=== PATIENT | male | born 1935 | race Caucasian/White ===

== ENCOUNTER 2018-05-26 03:55 | Observation (INO) | payer MEDICARE ==
[2018-05-26 04:40] LABS: #Basophils 0.1 thou/uL (0.0-0.2); #Eosinphils 0.3 thou/uL (0.0-0.7); #Monocytes 1.1 thou/uL (0.11-0.59); #Neutrophils 5.9 thou/uL (1.40-6.50); %Basophils 1.1 % (0.0-1.0); %Eosinophils 3.4 % (0.0-10.0); %Lymphocytes 21.6 % (21.0-51.0); %Monocytes 11.4 % (0.0-10.0); %Neutrophils 62.5 % (42.0-75.0); Hemoglobin 16.6 g/dL (14.0-18.0); Mean Corpuscular HGB CONC 34.5 g/dL (32.0-36.0); Mean Corpuscular Hemoglobin 31.7 pg (27.0-31.0); Mean Corpuscular Volume 91.8 fL (78.0-98.0); Mean Platelet Volume 8.1 fL (7.4-10.4); Platelet Count 327 thou/uL (130-400); RBC Distribution Width 11.2 % (11.5-14.5); Red Blood Cell (RBC) Count 5.23 mill/uL (4.70-6.10); White Blood Cell (WBC) Count 9.4 thou/uL (4.8-10.8)
[2018-05-26 04:52] LABS: ALT (SGPT) 20 U/L (8-55); AST (SGOT) 22 U/L (5-34); Albumin 3.6 g/dL (3.4-4.8); Alkaline Phosphatase 74 U/L (40-150); Anion Gap 13 mmol/L (10-20); BUN (Urea Nitrogen) 11 mg/dL (8.4-25.7); Bilirubin, Total 0.8 mg/dL (0.2-1.2); Calc. Creatinine Clearance 0 mL/min (70-130); Calcium 9.2 mg/dL (7.8-10.44); Carbon Dioxide 28 mmol/L (23-31); Chloride 103 mmol/L (98-107); Estimated GFR-MDRD 74; Globulin 3.1 g/dL (2.4-3.5); Glucose 120 mg/dL (83-110); Potassium 3.8 mmol/L (3.5-5.1); Protein, Total 6.7 g/dL (5.8-8.1); Sodium 140 mmol/L (136-145)
[2018-05-26] MEDS ORDERED: Azithromycin 500 MG VIAL ONE (05:15)
[2018-05-26] MEDS ORDERED: cefTRIAXone\\ROCEPHIN 1 GM VIAL ONE (06:39)
--- NOTE | 2018-05-26 08:06 | RAD ---
PA AND LATERAL CHEST: Indication: 83-year-old with cough and chest congestion for 1.5 weeks. Comparison: None. FINDINGS: The lungs are hyperexpanded with peripheral interstitial prominence consistent with emphysema. No air space consolidation is grossly evident. No pleural effusion or pneumothorax is identified. Heart size within normal limits. The aorta is mildly tortuous. There is multilevel spondylosis of the thoracic spine. IMPRESSION: 1. Findings of moderate to prominent emphysema. 2. No airspace consolidation to suggest pneumonia. POS: BH
[2018-05-26 08:28] VITALS: BMI 18.7
[2018-05-26] MEDS ORDERED: Albuterol Sulfate 1.25 MG/3 ML NEB NEB PRN (09:28)
[2018-05-26 15:53] VITALS: BP 134/77; TEMP 97.4
[2018-05-26] MEDS ORDERED: Atorvastatin Calcium 20 MG TAB PO SCH (21:00)
[2018-05-26] MEDS ORDERED: DorzolamidE/Timolol 2%/0.5% Ophth Soln 10 ml Bottle EA EYE SCH (21:00)
[2018-05-26] MEDS ORDERED: guaiFENesin/DM ER PO SCH (21:00)
--- NOTE | 2018-05-27 04:01 | SS-2 ---
SHORT STAY SUMMARY DATE OF ADMISSION: 05/26/2018 DATE OF DISCHARGE: 05/26/2018 RESIDENT: Sathish Flores DO ADMITTING ATTENDING: Liliana Tran M.D. DISCHARGE ATTENDING: Liliana Tran M.D. CONSULTATIONS: None. PROCEDURES: Chest x-ray on 05/26/2018, finding of moderate prominent emphysema , no airspace consolidation to suggest pneumonia. PRIMARY DIAGNOSIS: Bronchitis. SECONDARY DIAGNOSES: Suspected chronic obstructive pulmonary disease, hypertension, BPH, osteoporosis, and hyperlipidemia. PAST MEDICAL HISTORY: HTN, BPH, osteoporosis, HLD PAST SURGICAL HISTORY: None. FAMILY HISTORY: Noncontributory. ALLERGIES: None. LABORATORY RESULTS: Hemoglobin 16.6, hematocrit 48.0, white count 9.4, platelets 327. Sodium 140, potassium 3.8, chloride 103, bicarbonate 28, BUN 11 , creatinine 0.9, glucose 120. Procalcitonin 0.03. REVIEW OF SYSTEMS: A 12-point review of systems was conducted and is negative with the exception of what was noted in hospital summary PHYSICAL EXAMINATION: GENERAL: Alert and oriented x4. HEENT: Atraumatic, normocephalic. PERRLA. EOMI. CARDIOVASCULAR: Regular rate and rhythm. No murmurs. LUNGS: Mild expiratory rhonchi throughout. ABDOMEN: Nontender. Bowel sounds x4. EXTREMITIES: Patient moves all extremities. No edema noted. NEUROLOGIC: Cranial nerves II-XII grossly intact. No focal deficits. SKIN: No rashes or lesions. HISTORY OF PRESENT ILLNESS: This is an 83-year-old male who initially presented to the [facility] Emergency Room with a complaint of approximately of over 5 days of productive cough with green to clear sputum. Denies history of fever, shortness of breath, chest pain, nausea, vomiting, constipation, diarrhea, nasal congestion, sinus pain and pressure, sore throat, headache. While patient does not have history of COPD nor does he have history of risk factors for COPD. There was a concern this diagnosis based upon the chest x-ray read, therefore, the ER physician was concerned for the possible COPD exacerbation and admitted the patient. While being observed, the patient was no time hypoxic or tachycardic. He had no time complained of shortness of breath or wheezing. Vital signs remained within normal range for the entirety of the time of observation. Prior to discharge, the discharge plan was discussed with the patient and his . I explained that this is most likely a viral bronchitis and expect for the disease course to last 7-10 days with one to two additional weeks of cough after the resolution of the initial infection. We decided to continue the azithromycin for the total of 5-day course. I also recommended patient to take [id number] guaifenesin for symptomatic control. I gave specific followup recommendations to follow up with primary care provider within 1 week. Also to return to the emergency room if he were to begin to have fever, shortness of breath, chest pain, malaise, or other new or worsening symptoms. DISCHARGE MEDICATIONS: Dorzolamide, timolol 1 drop each eye b.i.d., atenolol 25 mg p.o. daily, Flomax 0.4 mg p.o. daily, simvastatin 40 mg p.o. at bedtime, lisinopril 20 mg p.o. daily, aspirin 81 mg p.o. daily, alendronate sodium 70 mg p.o. weekly, azithromycin 250 mg p.o. b.i.d. x4 days. DISCHARGE INSTRUCTIONS: 1. Location: Home. 2. Followup: Follow up with PCP in 3 to 7 days. 3. Diet: Regular. 4. Activity: Ad edita. Attending Note: Patient seen and evaluated with resident. Discussed case at length with resident. Reviewed all labs and imaging. Agree with resident documentation above. Nonill appearing male. Mild nasal congestion with clear drainage. Course breath sounds at apex likely related to upper airway radiation noise. No wheezing or crackles noted. Patient requesting early discharge. Procal negative. CXR without consolidation. VS reviewed. Afebrile. Will continue oral Azithromycin for dx of bronchitis. Patient re-evaluated in the late afternoon with continued improvement and no evidence of severe disease. Follow up with PCP in 3 days. ER precautions discussed. Anthony VAUGHAN
[2018-05-27] MEDS ORDERED: Lisinopril 20 MG TAB PO SCH (09:00)
[2018-05-27] MEDS ORDERED: Atenolol 25 MG TAB PO SCH (09:00)
[2018-05-27] MEDS ORDERED: Tamsulosin HCl 0.4 MG CAP PO SCH (09:00)
[2018-05-27] MEDS ORDERED: Azithromycin 250 MG TAB PO SCH (09:00)
[2018-05-27] MEDS ORDERED: Aspirin 81 mg Enteric Coated Tablet PO SCH (09:00)
[2018-06-02] MEDS ORDERED: Alendronate Sodium 70 mg Tablet PO SCH (09:00)
== END 2018-05-26 17:06 | disposition home or self-care (01) ==
LOC: SCSER 03:55 → 2SW 05:45
PROVIDERS: ADMIT Family Medicine; ATTEND Family Medicine
DX: J40 Bronchitis, not specified as acute or chronic (principal); I10 Essential (primary) hypertension; N40.0 Benign prostatic hyperplasia without lower urinary tract symptoms; M81.0 Age-related osteoporosis without current pathological fracture; E78.5 Hyperlipidemia, unspecified; Z79.82 Long term (current) use of aspirin; Z79.83 Long term (current) use of bisphosphonates; Z79.899 Other long term (current) drug therapy
CPT/HCPCS: 71046; 80053; 84145; 85025; 96365; 96367; 99284; G0378 ×2; 36415; 96375; J0456; J0696

== ENCOUNTER 2019-05-13 12:46 | Emergency (ER) | payer MEDICARE ==
--- NOTE | 2019-05-13 14:03 | CT ---
CT STONE PROTOCOL: HISTORY:Left lateral lumbar pain. Abdominal pain and flank pain COMPARISON: None DISCLAIMER: Absence of oral and IV contrast reduces the sensitivity of the exam particularly for the evaluation of solid organs and bowel. FINDINGS: The lung bases are unremarkable. No free air or free fluid is seen in the abdomen or pelvis. No calci fied gallstones are noted. There are a couple of cysts in the right lobe of the liver measuring 7 mm and 2 cm respectively. There is a punctate calculus in the left kidney. No calculi are seen in the right kidney, either uret er or the urinary bladder. No hydroureteronephrosis is noted in either side. The prostate is enlarged. There is fecal material in the colon. The patient is post appendectomy. The small bowel loops are not abnormally dilated. There are vascular calcifications without evidence of aneurysmal dilatation of the abdominal aorta. Degenerative changes seen in the spine. There is compression of L1 vertebral bod y, likely old. IMPRESSION: 1. Hepatic cysts 2. Punctate nonobstructing left renal calculus. 3. Prostatic enlargement.
== END 2019-05-13 14:58 | disposition home or self-care (01) ==
LOC: SCSER 12:46
DX: S39.012A Strain of muscle, fascia and tendon of lower back, initial encounter (principal); R05 Cough; E78.5 Hyperlipidemia, unspecified; I10 Essential (primary) hypertension; Z79.82 Long term (current) use of aspirin; Z79.899 Other long term (current) drug therapy; X58.XXXA Exposure to other specified factors, initial encounter
CPT/HCPCS: 74176

== ENCOUNTER 2019-06-25 12:29 | Outpatient (CLI) | payer MEDICARE, OTHER ==
--- NOTE | 2019-06-25 13:10 | RAD ---
EXAM: Chest Two Views 06/25/2019 1:06 PM HISTORY: Dyspnea COMPARISON: Prior exam dated May 26, 2018 FINDINGS: Heart: There is stable mild cardiomegaly. Pulmonary vessels: Normal. Costophrenic angles: Clear. Lungs: There is a 2.1 cm spiculated nodule within the left upper lobe which is new. This is superimpo sed on severe COPD change. Pneumothorax: None. Osseous structures:No acute fracture or subluxation demonstrated. There is scattered degenerative and osteoarthritic change present. Additional findings: None. IMPRESSION: 2.1 cm spiculated left upper lobe pulmonary nodule. Follow-up CT of the thorax is recommended for add itional characterization. Severe COPD Stable mild cardiomegaly.
== END 2019-06-25 12:30 | disposition home or self-care (01) ==
LOC: RAD 12:29
PROVIDERS: ATTEND Internal Medicine
DX: R06.00 Dyspnea, unspecified (principal); J44.9 Chronic obstructive pulmonary disease, unspecified; I51.7 Cardiomegaly; R91.1 Solitary pulmonary nodule
CPT/HCPCS: 71046

== ENCOUNTER 2019-10-14 07:34 | Outpatient (CLI) | payer MEDICARE ==
--- NOTE | 2019-10-15 10:11 | PET ---
PET CT: HISTORY: 84-year-old male with solitary pulmonary nodule. TECHNIQUE: PET scanning with CT attenuation correction was performed from the base of the brain through the prox imal thighs following the intravenous administration of 12 mCi [id number] in the right wrist. COMPARISON: None. CORRELATION: CT chest with IV contrast dated 09/27/2019 from [facility]. FINDINGS: No hypermetabolic pulmonary nodules are seen. There is a mildly hypermetabolic 7 mm right hilar lymph node with a SUV of 3. No marilyn hypermetabolism is seen in the neck, mediastinum, left hilum, axilla, abdomen, or pelvis. No hypermetabolic liver, adrenal, or skeletal lesions are seen. There is physiologic activity in the GI and tracts, and the visualized portions of the brain. The CT scan used for attenuation correction demonstrates no evidence of pleural effusions or ascites. IMPRESSION: 7.0 mm mildly hypermetabolic right hilar lymph node. This is a nonspecific finding and may be due to infection, inflammation, or neoplasia. Remainder of exam is otherwise unremarkable. POS: VICENTE
== END 2019-10-14 07:35 | disposition home or self-care (01) ==
LOC: PET 07:34
PROVIDERS: ATTEND Internal Medicine
DX: R91.1 Solitary pulmonary nodule (principal)
CPT/HCPCS: 78815; A9552

== ENCOUNTER 2019-10-19 13:19 | Outpatient (CLI) | payer MEDICARE ==
--- NOTE | 2019-10-19 14:52 | MRI ---
MRI BRAIN WITH AND WITHOUT CONTRAST: DATE: 10/19/2019. HISTORY: An 84-year-old male with [id number], Alzheimer's disease with late onset. TECHNIQUE: Multiple sequences obtained in axial, sagittal, and coronal planes; pre and post IV injection of gado linium-based contrast agent: 12 mL MultiHance. FINDINGS: The ventricles are normal in size and configuration. There is no restricted diffusion, abnormal intr aaxial enhancement, mass, midline shift or any other mass effect, recent intraaxial hemorrhage, or ex traaxial fluid collection. 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 There is diffuse brain parenchymal volume loss. IMPRESSION: 1. Mild-moderate chronic ischemic white matter changes and diffuse involution changes, not unusual fo r age 84 years. 2. Otherwise negative. jn[] POS: CET
== END 2019-10-19 13:20 | disposition home or self-care (01) ==
LOC: SCSMRI 13:19
PROVIDERS: ATTEND Psychiatry & Neurology Neurology
DX: G30.1 Alzheimer's disease with late onset (principal); I67.82 Cerebral ischemia
CPT/HCPCS: 70553; 82565